=== PATIENT | female | born 1950 | race Caucasian/White ===

== ENCOUNTER 2018-04-03 08:43 | Day surgery (SDC) | payer BC ==
[2018-04-02 14:33] VITALS: BMI 27.1
--- NOTE | 2018-04-03 08:21 | CP.SDSHP ---
Same Day Surgery H & P - History Proposed Procedure: colonoscopy - Previous Medical/Surgical History Endocrine/Metabolic: Diabetes - Date & Time Date: 04/03/18 Time: 08:21 Short Stay Discharge - Short Stay Discharge Admitting Diagnosis/Reason for Visit: SCREENING Disposition: HOME/ ROUTINE
[2018-04-03 09:31] VITALS: TEMP 98.9
[2018-04-03] MEDS ORDERED: Propofol 10 mg/ml Inj (20 ML) ONE ×2 (10:18→10:36)
[2018-04-03] MEDS ORDERED: Lidocaine Hydrochloride 5 ML INJ ONE (10:18)
[2018-04-03 12:01] VITALS: O2SAT 98
[2018-04-03] MEDS: Simethicone 80 mg Chewtab PO SCH ×2 (13:01→13:41)
[2018-04-03] MEDS ORDERED: Belladonna-Phenobarbital PO STA (13:21)
--- NOTE | 2018-04-03 13:45 | RAD ---
Date of service: 04/03/2018 HISTORY: POST COLONOSCOPY WITH ABDOMINAL PAIN COMPARISON: Tech 1st No prior. FINDINGS: BOWEL: No definitive radiographic evidence of free intraperitoneal air seen under the diaphragmatic surfaces. Moderate amount of air seen throughout the large bowel consistent with recent colonoscopy. No evidence of acute mechanical bowel obstruction BONES: Mild multilevel degenerative spondylosis of the lumbar spine. OTHER FINDINGS: None. IMPRESSION: No evidence of free intraperitoneal air seen under the diaphragmatic surfaces. Moderate amount of air is seen throughout the large bowel consistent with recent colonoscopy.
[2018-04-03 14:31] VITALS: BP 121/83; PULSE 80; RESP 18
== END 2018-04-03 13:55 | disposition home or self-care (01) ==
LOC: C.ENDO 08:43
PROVIDERS: ATTEND Colon & Rectal Surgery
DX: Z12.11 Encounter for screening for malignant neoplasm of colon (principal); D12.4 Benign neoplasm of descending colon; D12.5 Benign neoplasm of sigmoid colon
CPT/HCPCS: 45380; 74019; 82948; 88305; J2704